=== PATIENT | male | born 1980 | race African-American/Black ===

== ENCOUNTER 2017-10-28 18:41 | Emergency (ER) | payer BC ==
[2017-10-28 18:43] VITALS: BP 141/95; PULSE 91; RESP 14; TEMP 98.4; O2SAT 98
[2017-10-28] MEDS ORDERED: SODIUM CHLOR 0.9% 1000 ML INJ 1,000 ML IV ONE ×2 (20:10→20:40)
[2017-10-28] MEDS ORDERED: SODIUM CHLORIDE 0.9% FLUSH 10 ML FLUSH IVF PRN (20:15)
[2017-10-28] MEDS ORDERED: FLUCONAZOLE 100 MG TAB PO ONE (20:15)
--- NOTE | 2017-10-28 20:16 | PD ---
HPI Chief Complaint: Diabetic Time Seen by Provider: 20:03 Travel History International Travel<30 days: No Contact w/Intl Traveler<30days: No Traveled to known affect area: No History of Present Illness HPI 36-year-old male with history of diabetes, supposed to be on metformin and glipizide, has not taken either of these medications in over 7 months, recently moved here from [place], here for evaluation of hyperglycemia. Patient reports that for the last week or so he has been having some muscle aches, has felt lightheaded. He checked his blood sugar and noticed it was elevated in the 4-500 range at home. He has tried drinking fluids and changing his diet, however states that his symptoms have not resolved and his blood sugar remains elevated. He has no local primary care physician. He denies fevers, chills, cough, or recent illness. No vomiting or diarrhea. No abdominal pain. Patient also complains of having a yeast infection on the tip of his penis. PFSH Past Medical History Asthma: Yes Diabetes: Yes Patient Takes Glucophage: No Tetanus Vaccination: > 5 Years Influenza Vaccination: No Past Surgical History Tonsillectomy: Yes Social History Alcohol Use: Yes (OCC) Tobacco Use: No Substance Use: No Allergies-Medications (Allergen,Severity, Reaction): Coded Allergies: No Known Allergies (Unverified , 10/28/17) Reported Meds & Prescriptions Reported Meds & Active Scripts Active No Active Prescriptions or Reported Medications Review of Systems Except as stated in HPI: all other systems reviewed are Neg Physical Exam Narrative GENERAL: Well-developed, well-nourished, comfortable, no apparent distress. SKIN: Focused skin assessment warm/dry. HEAD: Atraumatic. Normocephalic. EYES: Pupils equal and round. No scleral icterus. No injection or drainage. ENT: Mucous membranes pink and moist. NECK: Trachea midline. No JVD. CARDIOVASCULAR: Regular rate and rhythm. No murmur appreciated. RESPIRATORY: No accessory muscle use. Clear to auscultation. Breath sounds equal bilaterally. GASTROINTESTINAL: Abdomen soft, non-tender, nondistended. : Uncircumcised male with some erythema and whitish exited around the head of his penis. No vesicles. No skin color changes to the scrotum. No crepitus. No scrotal tenderness or abnormal masses. MUSCULOSKELETAL: No obvious deformities. No clubbing. No cyanosis. No edema. NEUROLOGICAL: Awake and alert. No obvious cranial nerve deficits. Motor grossly within normal limits. Normal speech. PSYCHIATRIC: Appropriate mood and affect; insight and judgment normal. Data Data Last Documented VS Vital Signs Date Time Temp Pulse Resp B/P (MAP) Pulse Ox O2 Delivery O2 Flow Rate FiO2 10/28/17 20:46 80 20 122/78 (93) 100 Room Air 10/28/17 18:43 98.4 Orders Orders Complete Blood Count With Diff (10/28/17 20:10) Comprehensive Metabolic Panel (10/28/17 20:10) Beta Hydroxybutyrate (Acetone) (10/28/17 20:10) Ecg Monitoring (10/28/17 20:10) Iv Access Insert/Monitor (10/28/17 20:10) Oximetry (10/28/17 20:10) NPO (10/28/17 20:10) Sodium Chlor 0.9% 1000 Ml Inj (Ns 1000 M (10/28/17 20:10) Sodium Chlor 0.9% 1000 Ml Inj (Ns 1000 M (10/28/17 20:40) Sodium Chloride 0.9% Flush (Ns Flush) (10/28/17 20:15) Creatine Kinase (Cpk) (10/28/17 20:11) Fluconazole (Diflucan) (10/28/17 20:15) Insulin Human Regular Inj (Novolin R Inj (10/28/17 21:45) Labs Laboratory Tests Test 10/28/17 20:10 White Blood Count 6.7 TH/MM3 Red Blood Count 5.26 MIL/MM3 Hemoglobin 14.9 GM/DL Hematocrit 43.5 % Mean Corpuscular Volume 82.7 FL Mean Corpuscular Hemoglobin 28.4 PG Mean Corpuscular Hemoglobin Concent 34.3 % Red Cell Distribution Width 12.7 % Platelet Count 272 TH/MM3 Mean Platelet Volume 9.2 FL Neutrophils (%) (Auto) 49.2 % Lymphocytes (%) (Auto) 39.1 % Monocytes (%) (Auto) 5.8 % Eosinophils (%) (Auto) 5.0 % Basophils (%) (Auto) 0.9 % Neutrophils # (Auto) 3.3 TH/MM3 Lymphocytes # (Auto) 2.6 TH/MM3 Monocytes # (Auto) 0.4 TH/MM3 Eosinophils # (Auto) 0.3 TH/MM3 Basophils # (Auto) 0.1 TH/MM3 CBC Comment DIFF FINAL Differential Comment Blood Urea Nitrogen 15 MG/DL Creatinine 1.21 MG/DL Random Glucose 331 MG/DL Total Protein 7.8 GM/DL Albumin 3.9 GM/DL Calcium Level 9.8 MG/DL Alkaline Phosphatase 88 U/L Aspartate Amino Transf (AST/SGOT) 31 U/L Alanine Aminotransferase (ALT/SGPT) 26 U/L Total Bilirubin 0.4 MG/DL Sodium Level 132 MEQ/L Potassium Level 4.3 MEQ/L Chloride Level 98 MEQ/L Carbon Dioxide Level 26.4 MEQ/L Anion Gap 8 MEQ/L Estimat Glomerular Filtration Rate 82 ML/MIN Total Creatine Kinase 168 U/L B-Hydroxybutyrate 0.12 MMOL/L [facility] Medical Decision Making Medical Screen Exam Complete: Yes Emergency Medical Condition: Yes Differential Diagnosis Hyperglycemia, medication noncompliance, dehydration, hyperosmotic hyperosmolar state, DKA, balanitis Narrative Course Vital signs are within normal limits. CBC is unremarkable. CMP is remarkable for sodium 132 with a random glucose of 331. Bicarbonate is normal at 26.4. Total CK is 168. Hydroxybutyrate is 0.1. The patient is not in DKA. The patient was given 2 L of normal saline IV, 6 units of IV regular insulin, and on reassessment his blood sugar is 210. Patient is supposed to be on metformin, however he has not taken this medication in the last 7 months because he states that his glucose was well controlled and he decided to stop taking it. He just moved here from [place] and has no local physician. He also has no refills for his metformin. Plan is to restart him on metformin 500 mg twice a day. The patient also has signs and symptoms consistent with balanitis. He was given a dose of oral Diflucan which she has had in the past. I will also give him a prescription for clotrimazole. Patient advised to follow-up with a primary care physician this week. He was informed on when to return to the emergency department. He verbalizes understanding and agreement with plan. Diagnosis Primary Impression: Hyperglycemia Additional Impression: Balanitis Referrals: [facility] 3 days Primary Care Physician 3 days Additional Instructions: Follow-up with a primary care physician this week. Take medications as prescribed. Monitor your blood sugar at home. Return to the emergency department for worsening symptoms or any other concerns. Scripts Fluconazole (Diflucan) 150 Mg Tab 150 MG PO ONCE for Infection, #1 TAB 0 Refills Prov: Durga Chaudhry MD 10/28/17 Clotrimazole Topical (Clotrimazole Topical) 1% Soln 1 APPLIC TOPICAL BID for Fungal Infection, #30 ML 0 Refills Prov: Durga Chaudhry MD 10/28/17 Metformin (Metformin) 500 Mg Tab 500 MG PO BIDPC for Blood Sugar Management, #60 TAB 2 Refills Prov: Durga Chaudhry MD 10/28/17 Disposition: 01 DISCHARGE HOME Condition: Stable Durga Chaudhry MD Oct 28, 2017 20:16
[2017-10-28 20:46] VITALS: BP 122/78; PULSE 80; RESP 20; O2SAT 100
[2017-10-28 20:54] LABS: AUTOMATED NEUTROPHIL # 3.3 TH/MM3 (1.8-7.7); BASOPHIL # 0.1 TH/MM3 (0-0.2); BASOPHIL % 0.9 % (0.0-2.0); EOSINOPHIL # 0.3 TH/MM3 (0-0.4); HEMATOCRIT 43.5 % (39.0-51.0); HEMOGLOBIN 14.9 GM/DL (13.0-17.0); LYMPH % 39.1 % (9.0-44.0); LYMPHOCYTE # 2.6 TH/MM3 (1.0-4.8); MEAN CELL VOLUME 82.7 FL (80.0-100.0); MEAN CORPUSCULAR HEMOGLOBIN 28.4 PG (27.0-34.0); MEAN CORPUSCULAR HGB CONC 34.3 % (32.0-36.0); MEAN PLATELET VOLUME 9.2 FL (7.0-11.0); MONO % 5.8 % (0.0-8.0); MONOCYTE # 0.4 TH/MM3 (0-0.9); NEUT % 49.2 % (16.0-70.0); PLATELET COUNT 272 TH/MM3 (150-450); RED BLOOD COUNT 5.26 MIL/MM3 (4.50-5.90); RED CELL DISTRIBUTION WIDTH 12.7 % (11.6-17.2); WHITE BLOOD COUNT 6.7 TH/MM3 (4.0-11.0)
[2017-10-28 21:15] LABS: ALKALINE PHOSPHATASE 88 U/L (45-117); TOTAL BILIRUBIN ADULT 0.4 MG/DL (0.2-1.0); TOTAL PROTEIN 7.8 GM/DL (6.4-8.2)
[2017-10-28 21:16] LABS: ALBUMIN 3.9 GM/DL (3.4-5.0); AST (GOT) 31 U/L (15-37); BICARBONATE 26.4 MEQ/L (21.0-32.0); BLOOD UREA NITROGEN 15 MG/DL (7-18); CALCIUM 9.8 MG/DL (8.5-10.1); CHLORIDE 98 MEQ/L (98-107); CREATININE 1.21 MG/DL (0.60-1.30); GLOMERULAR FILTRATION RATE 82 ML/MIN (>89); GLUCOSE,RANDOM 331 MG/DL (74-106); SODIUM (NA) 132 MEQ/L (136-145)
[2017-10-28] MEDS ORDERED: INSULIN HUMAN REGULAR 1,000 UNITS/10 ML VIAL IV PUSH ONE (21:45)
[2017-10-28 21:47] LABS: ALT (GPT) 26 U/L (12-78)
[2017-10-28] MEDS ORDERED: CLOTR1%T TOPICAL (22:48)
[2017-10-28] MEDS ORDERED: METF500T PO (22:48)
[2017-10-28] MEDS ORDERED: DIFL150T PO (22:48)
[2017-10-28 23:21] VITALS: BP 132/94
== END 2017-10-28 23:36 | disposition home or self-care (01) ==
LOC: NEPD 18:41
DX: E11.65 Type 2 diabetes mellitus with hyperglycemia (principal); N48.1 Balanitis; M79.1 Myalgia; R42 Dizziness and giddiness; Z87.09 Personal history of other diseases of the respiratory system; Z91.14 Patient's other noncompliance with medication regimen
CPT/HCPCS: 80053; 82010; 82550; 85025; 96374; 99284; J1815; J7030